=== PATIENT | male | born 1970 | race Caucasian/White ===

== ENCOUNTER 2019-10-03 09:48 | Inpatient (IN) | payer OTHER, SELFPAY ==
[~2019-10-03] VITALS: Ht 175.3 cm; Wt 96.8 kg
[2019-10-03 09:53] VITALS: Ht 175.3 cm; Wt 96.8 kg
[2019-10-03] MEDS ORDERED: PROTONIX20 MG PO (10:31)
[2019-10-03] MEDS ORDERED: VERAPAMIL HCL120 M2 PO ×2 (10:31→11:00)
[2019-10-03] MEDS ORDERED: FORTAMET500 M1 PO (10:31)
[2019-10-03 10:33] LABS: CALCIUM 8.8 mg/dL (8.5-10.1); CARBON DIOXIDE 24.7 mmol/L (21-32); CHLORIDE SERUM 98 mmol/L (98-107); CREATININE SERUM 0.9 mg/dL (0.7-1.3); GFR1 > 60 mL/min; GLUCOSE SERUM 130 mg/dL (74-106); POTASSIUM SERUM 3.5 mmol/L (3.5-5.1); SODIUM SERUM 134 mmol/L (136-145)
[2019-10-03 10:42] LABS: ALKALINE PHOSPHATASE 72 U/L (46-116); ALT/SGPT 54 U/L (16-63); AST/SGOT 50 U/L (15-37); BILIRUBIN TOTAL 0.6 mg/dL (0.20-1.00); LACTIC DEHYDROGENASE (LDH) 364 U/L (100-190); TOTAL PROTEIN, SERUM 7.5 g/dL (6.4-8.2)
[2019-10-03 10:43] LABS: C REACTIVE PROTEIN 17.2 mg/dL (<=0.9)
[2019-10-03 10:55] LABS: BASOPHIL % 0 % (0-2); PLATELET COUNT 306 x10^3mcL (130-400); RED CELL DISTRIBUTION WIDTH 14.3 % (11.5-14.5)
[2019-10-03] MEDS ORDERED: ONDANSETRON ODT8 M1 PO (10:58)
[2019-10-03] MEDS ORDERED: BENZONATATE150 MG PO (10:59)
[2019-10-03] MEDS ORDERED: DOXYCYCLINE HY100 MG PO (10:59)
[2019-10-03] MEDS ORDERED: FINASTERIDE1 MG PO (11:00)
[2019-10-03] MEDS ORDERED: DICYCLOMINE HYD10 M1 PO (11:01)
[2019-10-03] MEDS ORDERED: DORZOLAMIDE HYD10 M2 OD (11:01)
[2019-10-03 14:49] VITALS: BP 131/73
[2019-10-03 15:25] VITALS: BP 109/68
[2019-10-03 17:00] VITALS: BP 138/81
[2019-10-03 20:00] VITALS: BP 138/83
[2019-10-04 06:00] VITALS: BP 142/82
[2019-10-04 06:39] LABS: PLATELET COUNT 331 x10^3mcL (130-400)
[2019-10-04 06:48] LABS: BASOPHIL % 0 % (0-2); RED CELL DISTRIBUTION WIDTH 14.7 % (11.5-14.5)
[2019-10-04 08:30] VITALS: BP 134/85
[2019-10-04 12:30] LABS: CALCIUM 9.3 mg/dL (8.5-10.1); CARBON DIOXIDE 24.5 mmol/L (21-32); CHLORIDE SERUM 100 mmol/L (98-107); CREATININE SERUM 0.9 mg/dL (0.7-1.3); GFR1 > 60 mL/min; GLUCOSE SERUM 98 mg/dL (74-106); POTASSIUM SERUM 3.9 mmol/L (3.5-5.1); SODIUM SERUM 136 mmol/L (136-145)
[2019-10-04 17:00] VITALS: BP 118/71
[2019-10-04 20:11] VITALS: BP 118/74
[2019-10-05 06:48] LABS: BASOPHIL % 0.1 % (0-2); PLATELET COUNT 389 x10^3mcL (130-400); RED CELL DISTRIBUTION WIDTH 14.4 % (11.5-14.5)
[2019-10-05 06:59] VITALS: BP 149/68
[2019-10-05 06:59] LABS: CALCIUM 8.9 mg/dL (8.5-10.1); CARBON DIOXIDE 31.4 mmol/L (21-32); CHLORIDE SERUM 97 mmol/L (98-107); CREATININE SERUM 1.1 mg/dL (0.7-1.3); GFR1 > 60 mL/min; GLUCOSE SERUM 90 mg/dL (74-106); POTASSIUM SERUM 3.6 mmol/L (3.5-5.1); SODIUM SERUM 136 mmol/L (136-145)
[2019-10-05 09:10] VITALS: BP 143/90
[2019-10-05 12:30] VITALS: BP 122/61
[2019-10-05 19:30] VITALS: BP 133/90
[2019-10-06 06:30] VITALS: BP 148/85
[2019-10-06 06:46] LABS: BASOPHIL % 0.2 % (0-2); RED CELL DISTRIBUTION WIDTH 14.4 % (11.5-14.5)
[2019-10-06 07:40] LABS: PLATELET COUNT 453 x10^3mcL (130-400)
[2019-10-06 08:00] VITALS: BP 142/93
[2019-10-06 08:21] LABS: CALCIUM 9.1 mg/dL (8.5-10.1); CHLORIDE SERUM 99 mmol/L (98-107); CREATININE SERUM 0.8 mg/dL (0.7-1.3); GFR1 > 60 mL/min; GLUCOSE SERUM 86 mg/dL (74-106); POTASSIUM SERUM 3.3 mmol/L (3.5-5.1); SODIUM SERUM 137 mmol/L (136-145)
[2019-10-06 09:19] VITALS: BP 148/85
[2019-10-06 12:00] VITALS: BP 135/83
[2019-10-06 16:32] VITALS: BP 135/83
[2019-10-06 17:07] VITALS: BP 105/62
== END 2019-10-06 23:47 | disposition other institution (70) | DRG 177 ==
LOC: ED 09:48 → DU 12:27
PROVIDERS: Emergency Medicine; ADMIT Internal Medicine
DX: U07.1 COVID-19 (principal); J96.01 Acute respiratory failure with hypoxia; J45.909 Unspecified asthma, uncomplicated; I10 Essential (primary) hypertension; E11.9 Type 2 diabetes mellitus without complications; H54.8 Legal blindness, as defined in USA; H40.9 Unspecified glaucoma; Z79.899 Other long term (current) drug therapy
CPT/HCPCS: 36600; 82962; 83880; 85378; G0378; J0456; J0696; J2060; J3490; J7030; J7040; Q0162